=== PATIENT | male | born 1945 | race Caucasian/White ===

== ENCOUNTER 2017-01-20 12:36 | Emergency (ER) | payer OTHER ==
[~2017-01-20] VITALS: Ht 172.7 cm; Wt 83.6 kg
[~2017-01-20 12:36] MED LIST: AMLO-218 PO; APIX5TAB PO; DICY20TA59 PO; FENO48TA4 PO; LEVO750T25 PO; METO-448 PO
[2017-01-20 12:41] VITALS: Ht 172.7 cm; Wt 83.6 kg
--- NOTE | 2017-01-20 14:14 | ERD ---
ER Documentation Chief Complaint Chief Complaint BIB SELF C/O RIGHT EAR PAIN AND POPPING WHILE BLOWING NOSE HPI Patient presents after seen by PCP for congestion 10 days and right ear discomfort 1 day. Denies decrease in hearing, tinnitus, dizziness, headache, fever, chills. No sick contacts. No aggravating or alleviating factors. Has not taken any medications to relieve the symptoms. Denies pain. Patient has no other complaints and describes no other associated manifestations. Nursing notes have been reviewed and are consistent with history given. ROS All systems reviewed and are negative except as per history of present illness. Medications Home Meds Active Scripts Levofloxacin* (Levaquin*) 750 Mg Tablet, 750 MG PO DAILY for 7 Days, TAB Prov:RATX,ALEJANDRA S. 12/03/15 Fenofibrate Nanocrystallized* (Fenofibrate*) 48 Mg Tablet, 48 MG PO DAILY for 30 Days, #30 TAB 4 Refills Prov:RATX,ALEJANDRA S. 12/03/15 Metoprolol Tartrate* (Lopressor*) 25 Mg Tab, 25 MG PO Q12 for 30 Days, #60 TAB 5 Refills Prov:RAHI,ALEJANDRA S. 12/03/15 Apixaban* (Eliquis*) 5 Mg Tablet, 5 MG PO BID for 30 Days, #60 TAB 5 Refills Prov:RAHI,ALEJANDRA S. 12/03/15 Amlodipine Besylate* (Norvasc*) 10 Mg Tablet, 10 MG PO DAILY, #30 TAB Prov:LEKKOS,APOSTOLOS A. DO 12/01/15 Dicyclomine Hcl* (Bentyl*) 20 Mg Tablet, 20 MG PO QID, #30 TAB Prov:LEKKOS,APOSTOLOS A. DO 12/01/15 Allergies Allergies: Coded Allergies: No Known Allergy (Unverified , 12/01/15) PMhx/Soc Medical and Surgical Hx: pt denies Medical Hx History of Surgery: Yes (RT HIP ,LT EYE ) Anesthesia Reaction: No Hx Neurological Disorder: No Hx Respiratory Disorders: No Hx Cardiac Disorders: No Hx Psychiatric Problems: No Hx Miscellaneous Medical Probl: No Hx Alcohol Use: Yes Hx Substance Use: No Hx Tobacco Use: No Physical Exam Vitals Vital Signs Date Time Temp Pulse Resp B/P Pulse Ox O2 Delivery O2 Flow Rate FiO2 01/20/17 12:41 97.9 77 20 137/87 97 Physical Exam Const: Overweight 71-year-old male no acute distress Head: Atraumatic. No tenderness with palpation of the sinuses. Eyes: Normal Conjunctiva. EOMI, PERRLA, no nystagmus. ENT: Right tympanic membrane retracted. External auditory ear canals unremarkable. No pain with movement of the external auricle. Light cone reflex visualized bilaterally. Normal External Ears, Nose and Mouth. Neck: Full range of motion..~ No meningismus. Resp: Clear to auscultation bilaterally Cardio: Regular rate and rhythm, no murmurs Abd: Soft, non tender, non distended. Normal bowel sounds Skin: No petechiae or rashes Back: No midline or flank tenderness Ext: No cyanosis, or edema Neur: Awake and alert Psych: Normal Mood and Affect Procedures/MDM 71-year-old male presenting with a chief complaint of congestion. No cough. I have little suspicion for serious bacterial infection including meningitis, pneumonia, airway obstructive pathologies, ACS or acute abdomen, otitis media, external otitis, malignant otitis. Most likely diagnosis is congestion from a viral illness. No indication for antibiotics at this time. No indication for further workup. Patient will be discharged with supportive therapy. Have suggested [id number] Mucinex and Sudafed. I have spoke with the patient regarding their condition and future management. They have verbally responded that they understand their status and treatment plan. The patients vitals are stable, and their current condition is appropriate for discharge. The patient will be given discharge instructions with return precautions. Departure Diagnosis: Primary Impression: Right ear pain Additional Impression: Congestion of upper airway Condition: Stable Patient Instructions: Adult Self-Care for Colds Additional Instructions: Tete un seguimiento con siddiqui PCP dentro de los prximos 1-3 varner para moriah evaluaci n ms completa y moriah posible derivacin a un especialista. Devuelva el departamento de emergencia inmediatamente si los sntomas empeoran o cambian. Si tiene alguna pregunta con respecto a los medicamentos, consulte con siddiqui farmac utico o con nosotros antes de salir. Si se producen reacciones adversas mientras adarsh cody medicamentos, suspenda el tratamiento y regrese inmediatamente al servicio de urgencias. Home cody medicamentos segn las indicaciones y complete el curso completo del tratamiento. KARISHMA OLIVEIRA PA-C Jan 20, 2017 14:14
== END 2017-01-20 14:45 | disposition home or self-care (01) ==
LOC: FTE 12:36
DX: H92.01 Otalgia, right ear (principal); R09.81 Nasal congestion
CPT/HCPCS: 99282

== ENCOUNTER → 2017-09-08 | Emergency (ER) | END | disposition home or self-care (01) ==

== ENCOUNTER 2017-09-22 13:27 | Emergency (ER) | END 2017-09-22 16:02 | disposition home or self-care (01) ==